=== PATIENT | female | born 1955 | race Two or more races ===

== ENCOUNTER → 2017-04-28 | Emergency (ER) | payer OTHER ==
[~2017-04-28] VITALS: Ht 152.4 cm; Wt 93.0 kg
[~2017-04-28] MED LIST: AZITHROMYCIN250 MG PO; CLEOCIN HCL300 MG PO; PROVENTIL HFA6.7 GM IH; TRAMADOL HCL-AP1 TAB PO; TUSSI PRES-B L120 M1 PO
== END | disposition home or self-care (01) ==
LOC: ER 15:35
DX: K12.2 Cellulitis and abscess of mouth (principal); K05.212 Aggressive periodontitis, localized, moderate

== ENCOUNTER 2024-06-24 03:12 | Emergency (ER) | payer OTHER ==
[~2024-06-24] VITALS: Ht 160 cm; Wt 95.3 kg
[2024-06-24] MEDS ORDERED: ATORVASTATIN CA10 MG PO (03:19)
[2024-06-24] MEDS ORDERED: COZAAR50 MG PO (03:19)
[2024-06-24] MEDS ORDERED: AMLODIPINE-OLM1 EAC2 PO (03:19)
[2024-06-24] MEDS ORDERED: FAMOTIDINE/PF 20 MG/2 ML VIAL IV PUSH STA (04:36)
[2024-06-24] MEDS ORDERED: PROMETHAZINE HCL 50 MG/ML AMPUL IM STA (04:37)
[2024-06-24] MEDS ORDERED: FAMOTIDINE/PF 20 MG/2 ML VIAL ONE (05:00)
[2024-06-24] MEDS ORDERED: PROMETHAZINE HCL 50 MG/ML AMPUL IM ONE (05:00)
[2024-06-24 06:00] LABS: HEMATOCRIT 42.9 % (36.0-45.00); HEMOGLOBIN 14.5 g/dL (12.0-15.00); MEAN CELL VOLUME 93.1 fL (80.00-100.00); MEAN CORPUSCULAR HEMOGLOBIN 31.5 pg (27.00-32.0); MEAN CORPUSCULAR HGB CONC 33.8 g/dl (32.0-36.0); PLATELET COUNT 203 K/uL (150-450); RED BLOOD COUNT 4.61 M/uL (4.00-6.00)
[2024-06-24 06:04] LABS: ALBUMIN 3.9 gm/dL (3.4-5.0); BILIRUBIN TOTAL 0.49 mg/dL (0.3-1.2); CALCIUM 9.2 mg/dL (8.5-10.1); CREATININE SERUM 0.7 mg/dL (0.55-1.02); GFR 82.72; GLOBULINA 3.7 G/DL (2.4-3.5); POTASSIUM 4.09 mEq/L (3.5-5.1); TOTAL PROTEIN 7.6 gm/dL (6.4-8.2)
[2024-06-24 06:25] LABS: PH,URINE 5.5 (5.0-8.0); URINE APPEARANCE Clear; URINE BILIRRUBIN Negative (NEGATIVE); URINE BLOOD Trace; URINE COLOR Yellow; URINE GLUCOSE Negative (NEGATIVE); URINE KETONE Negative (NEGATIVE); URINE LEUKOCYTE Negative; URINE NITRATE Negative; URINE PROTEIN Negative (NEGATIVE); URINE UROBILINOGEN 0.2 E.U./dl
[2024-06-24 06:28] LABS: URINE BACTERIA 217.8 uL (0.0-1933); URINE EPITHELIAL CELLS 12.6 uL (0.0-38.8); URINE WBC 1.8 uL (0.0-23.2)
[2024-06-24 07:19] LABS: URINE CAST 0.44 uL (0.0-1.40)
[2024-06-24] MEDS ORDERED: MECLIZINE HCL25 MG PO (08:01)
== END 2024-06-24 08:27 ==
LOC: ER 03:14
PROVIDERS: General Practice
DX: R11.10 Vomiting, unspecified (principal); I10 Essential (primary) hypertension
CPT/HCPCS: 36415; 70450; 93005; 96365; 96372; 99284; J2550; J3490

== ENCOUNTER 2024-10-16 15:39 | Emergency (ER) | payer OTHER ==
[~2024-10-16] VITALS: Ht 152.4 cm; Wt 95.3 kg
[~2024-10-16 15:39] MED LIST changes: +AMLODIPINE-OLM1 EAC2 PO; +ATORVASTATIN CA10 MG PO; +COZAAR50 MG PO; +MECLIZINE HCL25 MG PO
[2024-10-16] MEDS ORDERED: ONDANSETRON HCL 2 MG/ML VIAL ONE (16:44)
[2024-10-16] MEDS ORDERED: MECLIZINE HCL 25 MG TABLET PO ONE ×2 (16:44→16:45)
[2024-10-16] MEDS ORDERED: 0.9 % SODIUM CHLORIDE 1,000 ML IV SCH (16:45)
[2024-10-16] MEDS ORDERED: ONDANSETRON HCL 2 MG/ML VIAL IV ONE (16:45)
[2024-10-16 17:13] LABS: BASO % 0.9 % (0.1-1.2); EOS # 0.07 (0.04-0.54); EOS % 2.1 % (0.7-7.0); HEMATOCRIT 41.4 % (34.1-44.9); HEMOGLOBIN 13.7 g/dL (11.2-15.7); LYMPH # 0.78 (1.18-3.74); LYMPH % 23.1 % (19.3-53.1); MEAN CORPUSCULAR HEMOGLOBIN 30.4 pg (25.6-32.2); MONO # 0.32 (0.24-0.82); MONO % 9.5 % (4.7-12.5); NEUT # 2.17 (1.56-6.13); NEUT % 64.1 % (34.0-71.1); PLATELET COUNT 210 K/uL (163-369); RED CELL DISTRIBUTION WIDTH 12.8 % (11.6-14.4)
[2024-10-16 17:37] LABS: BILIRUBIN TOTAL 0.53 mg/dL (0.3-1.2); CALCIUM 9.2 mg/dL (8.5-10.1); CREATININE SERUM 0.63 mg/dL (0.55-1.02); GFR 93.42; GLOBULINA 3.5 G/DL (2.4-3.5); POTASSIUM 4.04 mEq/L (3.5-5.1); TOTAL PROTEIN 7.5 gm/dL (6.4-8.2)
[2024-10-16] MEDS ORDERED: MECLIZINE HCL25 MG PO (17:58)
== END 2024-10-16 17:14 | disposition home or self-care (01) ==
LOC: ER 15:39
PROVIDERS: General Practice
DX: R42 Dizziness and giddiness (principal); I10 Essential (primary) hypertension; E11.9 Type 2 diabetes mellitus without complications
CPT/HCPCS: 36415; 93005; 96365; 99282; J2405; J7030

== ENCOUNTER 2025-04-01 09:07 | Outpatient (CLI) | payer OTHER | END 2025-04-01 09:23 | disposition home or self-care (01) | LOC: MRI 09:07 | PROVIDERS: ATTEND Family Medicine Geriatric Medicine | DX: R42 Dizziness and giddiness (principal); I10 Essential (primary) hypertension; E11.69 Type 2 diabetes mellitus with other specified complication; E78.2 Mixed hyperlipidemia | CPT/HCPCS: 70553; Q9965 ==